=== PATIENT | female | born 1970 ===

== ENCOUNTER 2017-11-04 03:01 | Day surgery (SDC) | payer OTHER, MEDICARE ==
[~2017-11-04] VITALS: Ht 160 cm; Wt 118.8 kg
[~2017-11-04 03:01] MED LIST: ASPI-1471 PO; CALC500T6 PO; CELLC500PT PO; CHOL100058 PO; EPI IVP ONE; FURO-47 PO; LIDO IVP ONE; LOSA25TA50 PO; LUTE6TAB PO; METO25TA23 PO; POTA20TA94 PO; SERT-181 PO; SODIUM BICAR IVP ONE
[2017-11-04] MEDS ORDERED: SODIUM BICAR IVP ONE (14:20)
[2017-11-04] MEDS ORDERED: EPI IVP ONE (14:20)
[2017-11-04] MEDS ORDERED: LIDO IVP ONE (14:20)
[2017-11-04] MEDS ORDERED: ETHYL CHLORIDE TP ONE (14:20)
[2017-11-04 15:23] VITALS: BP 114/76
[2017-11-04] MEDS ORDERED: NEOMYCIN/POLYMYX/BACITR 30 GM TP ONE (18:48)
[2017-11-04 18:59] VITALS: BP 119/74
[2017-11-04] MEDS ORDERED: OXYC-865 PO (19:13)
--- NOTE | 2017-11-04 21:05 | OPERATIVE REPORT 1 ---
EVENT DATE: November 04, 2017 SURGEON: Alvin Hackett MD ANESTHESIOLOGIST: None. ANESTHESIA: Wheal. 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 POSTOPERATIVE DIAGNOSIS Extensive tenosynovitis of flexor digitorum superficialis and flexor digitorum profundus tendons. PROCEDURE PERFORMED Exploration of right long finger at A1 percy with tenosynovectomy, flexor digitorum superficialis and flexor digitorum profundus. ESTIMATED BLOOD LOSS Minimal. INTRAVENOUS FLUIDS None. TOURNIQUET TIME None. SPECIMENS None. COMPLICATIONS None. IMPLANTS USED None. SUMMARY OF PROCEDURE The patient was seen in the preoperative holding area. She was given 10 mL of a local injected into the skin as well as along the path of the tendon. Before doing this, we confirmed that she was still catching and causing a full lock on the finger. We injected with a buffered solution of lidocaine with epinephrine and waited approximately 40 minutes before proceeding with surgery. A transverse incision was made over the proximal aspect of the A1 percy, deepened through skin and subcutaneous tissue by blunt spreading. Once I fully exposed the palmar, retinacular, and A1 percy, we incised it with a tenotomy scissors, completing distally until the flexion crease of the finger. There was abundant tenosynovitis adherent to the FDS and the FDP tendons which took some time to remove. Right-angled hemostats were placed beneath each tendon. They were pulled apart from one another while flexing the finger to remove tension, and then a tenosynovitis was removed from the tendons by sharp dissection. Once this was complete, we had her try to re-demonstrate the trigger finger, and it was not occurring. She said she still felt a trigger, but when she was looking at her hand and trying to make it happen while we were in the operating room, she could not actually make it physically trigger. She just thought she was feeling it click somewhere. It is certainly possible that another digit is doing this or that she just has some residual tenosynovitis in an adjacent finger that is causing some restriction to motion, but it does not appear that she was locking anymore. Previous to the surgery, I was having to unlock her finger by hand after she would demonstrate a fist. The wound was irrigated and closed with nylon. She was given a dry, sterile dressing and was transferred to the recovery area in stable condition. EMIL
== END 2017-11-04 19:30 | disposition home or self-care (01) ==
LOC: OR 03:01
PROVIDERS: ATTEND Orthopaedic Surgery Hand Surgery
DX: M65.841 Other synovitis and tenosynovitis, right hand (principal)
CPT/HCPCS: 26145; A4565

== ENCOUNTER 2017-12-27 00:29 | Day surgery (SDC) | payer OTHER, MEDICARE ==
[~2017-12-27] VITALS: Ht 160 cm; Wt 115.7 kg
[2017-12-27] VITALS (9 sets, daily range): BP systolic 119–136; BP diastolic 78–91
[~2017-12-27 00:29] MED LIST changes: +CALC-1046 PO; -EPI IVP ONE; -LIDO IVP ONE; +LUTE6CAP11 PO; +OXYC-865 PO; +SERT-173 PO; -SODIUM BICAR IVP ONE
[2017-12-27] MEDS ORDERED: fentaNYL CITR 100 MCG/2 ML AMP ONE ×4 (08:19→14:32)
[2017-12-27] MEDS ORDERED: PROPOFOL EMUL(*) 10MG/ML 20 ML 20 ML ONE (08:20)
[2017-12-27] MEDS ORDERED: DEXAMETHASONE SOD PHOS 10MG/ML ONE (08:20)
[2017-12-27] MEDS ORDERED: ONDANSETRON 4 MG/2 ML VIAL ONE ×2 (08:20→16:17)
[2017-12-27] MEDS ORDERED: LIDOCAINE MPF 1% 5 ML VIAL ONE (08:20)
[2017-12-27] MEDS ORDERED: MIDAZOLAM 2 MG/2 ML VIAL ONE (08:22)
[2017-12-27] MEDS ORDERED: NEOMYCIN/POLYMYX/BACITR 30 GM TP ONE (08:24)
[2017-12-27] MEDS ORDERED: ROPIVACAINE 0.2% 20 ML VIAL ONE ×2 (08:24→08:25)
[2017-12-27] MEDS ORDERED: BUPIV/EPI 0.25% 1:200,000 50ML INFIL ONE (08:24)
[2017-12-27] MEDS ORDERED: METOPROLOL TART 5 MG/5 ML VIAL ONE (08:57)
[2017-12-27] MEDS ORDERED: NORMOSOL R SOLN(*) 1000 ML BAG 1,000 ML IV PRN (09:00)
[2017-12-27] MEDS ORDERED: CLINDAMYCIN(*) 900 MG/NS 50 ML 50 ML IVPB ONE (09:00)
[2017-12-27] MEDS ORDERED: FAMOTIDINE 20 MG TAB PO ONE (09:00)
[2017-12-27] MEDS ORDERED: ceFAZolin(*) 2GM/D5W 50ML 50 ML IVPB ONE (09:00)
[2017-12-27] MEDS ORDERED: LIDOCAINE/SOD BICARB 8.4% SYR ID ONE (09:00)
[2017-12-27] MEDS ORDERED: MIDAZOLAM 2 MG/2 ML VIAL IVP PRN (09:00)
[2017-12-27] MEDS ORDERED: METOPROLOL SUCC XL 25 MG TABCR PO ONE (09:10)
[2017-12-27] MEDS ORDERED: KETAMINE HCL 500 MG/10 ML VIAL ONE (12:20)
[2017-12-27] MEDS ORDERED: ACETAMINOPHEN(*)1000 MG/100 ML 100 ML IVPB ONE (13:59)
[2017-12-27] MEDS ORDERED: KETOROLAC 30 MG/ML VIAL ONE (13:59)
[2017-12-27] MEDS ORDERED: oxyCODONE HCL 5 MG CAP ONE (14:40)
[2017-12-27] MEDS ORDERED: CEPH500T7 PO (15:01)
[2017-12-27] MEDS ORDERED: OXYC5CAP21 PO (15:01)
--- NOTE | 2017-12-27 15:39 | OPERATIVE REPORT 1 ---
EVENT DATE: December 27, 2017 SURGEON: Alvin Hackett MD ANESTHESIOLOGIST: Keshawn Snow MD ANESTHESIA: General. 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 POSTOPERATIVE DIAGNOSES 1. Large area of lateral patellofemoral eburnation, both patella and femur. 2. Large medial plica. 3. Chondral damage of remaining patella and femur. 4. Posteromedial meniscus tear. 5. Mild free edge tearing of lateral meniscus and root tearing, incomplete. 6. Grade II changes at lateral tibial plateau. PROCEDURES PERFORMED Right knee arthroscopy with chondroplasty of lateral tibial plateau and patellofemoral joint, excision of plica, and debridement of lateral meniscus root and free edge of lateral meniscus with subtotal medial meniscectomy and lateral release at patellofemoral joint. ESTIMATED BLOOD LOSS Minimal. INTRAVENOUS FLUIDS 900 TOURNIQUET TIME Approximately 37 minutes. SPECIMENS No specimens. COMPLICATIONS No complications. IMPLANTS USED No implants. SUMMARY OF PROCEDURE The patient was brought into the operating room and placed on the OR table in the supine position. After obtaining adequate general anesthesia, the left lower extremity was prepped and draped in the usual sterile fashion. The limb was exsanguinated, and the tourniquet was inflated. The patient's obesity made palpation of the articular surface a bit challenging, but I used a needle to triangulate for location of the joint and then made our portals. We started with a lateral visualization in the medial instrumentation portal. There was a moderate amount of synovitis in the patellofemoral joint. There was a large plica confluent with a suprapatellar stricture. This tissue was removed with the duckbill biter and then the shaver. We then assessed the rest of the joint. There was quite a bit of damage in the patellofemoral joint. The entire lateral aspect was completely eburnated and was paired with complete eburnation of the superior aspect of the femur, but surprisingly, the weightbearing surface of the lateral side looked much better. After doing the chondroplasty of the residual cartilage on the patellofemoral joint, we looked at the medial and lateral gutters which were clear. Going into the medial compartment, there was moderate tearing of the posteromedial meniscus which was debrided with a duckbill biter or shaver and then a radiofrequency probe on a low 8 setting. We then moved to the center anterior, and there were intact ACL and PCL. No additional work here was necessary. We moved to the lateral compartment where there was a little bit of free edge fraying on the lateral meniscus and some fraying of the lateral root, but it was not a complete root tear. This was debrided with a shaver and a radiofrequency probe. A little bit of additional chondroplasty was required on the lateral tibial plateau where she had grade II changes. We then moved the camera to the medial portal and brought in the shaver from the lateral portal. We finished debridement of the lateral aspect of the patellofemoral joint and then came in with the radiofrequency probe and did a lateral release due to the complete eburnation on the lateral facet of the patellofemoral joint. With this done, the knee was drained. Arthroscopic portals were closed with nylon, and she was given a dry, sterile dressing with a kidney swenson shaped felt pad laterally. She was awakened and transferred to the recovery area in stable condition. EMIL
== END 2017-12-27 15:16 | disposition home or self-care (01) ==
LOC: OR 00:29
PROVIDERS: ATTEND Orthopaedic Surgery Hand Surgery
DX: M17.11 Unilateral primary osteoarthritis, right knee (principal); S83.281A Other tear of lateral meniscus, current injury, right knee, initial encounter
CPT/HCPCS: 29880; 94667; J0131; J1100; J1885; J2001; J2250; J2405; J2704; J2795; J3010; J3490